=== PATIENT | male | born 1985 | race Two or more races ===

== ENCOUNTER 2023-01-08 13:44 | Emergency (ER) | payer OTHER ==
[~2023-01-08] VITALS: Ht 185.4 cm; Wt 87.5 kg
[2023-01-08] MEDS ORDERED: KEPPRA1000 MG PO (14:17)
== END 2023-01-08 16:40 | disposition home or self-care (01) ==
LOC: ER 13:44
DX: G40.909 Epilepsy, unspecified, not intractable, without status epilepticus (principal)